=== PATIENT | female | born 1990 | race African-American/Black ===

== ENCOUNTER 2019-02-15 12:35 | Emergency (ER) | payer MEDICAID ==
[~2019-02-15] VITALS: Ht 167.6 cm; Wt 79.0 kg
[2019-02-15 12:41] VITALS: BP 163/80
[2019-02-15] MEDS ORDERED: CYCLOBENZAPRINE 10MG TABLET PO ONE (13:15)
[2019-02-15] MEDS ORDERED: KETOROLAC 60MG/2ML VIAL IM ONE (13:15)
== END 2019-02-15 13:47 | disposition home or self-care (01) ==
LOC: ER 13:23
DX: S16.1XXA Strain of muscle, fascia and tendon at neck level, initial encounter (principal); V48.5XXA Car driver injured in noncollision transport accident in traffic accident, initial encounter; Y93.9 Activity, unspecified; Y92.410 Unspecified street and highway as the place of occurrence of the external cause
CPT/HCPCS: 81025; 96372; 99283; J1885